=== PATIENT | female | born 2000 | race Caucasian/White ===

== ENCOUNTER 2024-03-05 16:30 | Emergency (ER) | payer OTHER, SELFPAY ==
[2024-03-05 16:33] VITALS: BP 132/73
--- NOTE | 2024-03-05 17:30 | ED.GENMED ---
History of Present Illness
General
Chief Complaint: Crisis Evaluation
Source: patient
Exam Limitations: none
Time Seen by Provider: 03/05/24 16:59
History of Present Illness
History of Present Illness:
23-year-old female presents with complaints of feeling overwhelmed and very anxious. Her father who accompanies her states that she has been almost manic lately. She has been wanting to buy everyone priest and a puppy. And more recently has been
more depressed. She spent some time at [facility] about a year ago and working diagnosis at that time was bipolar versus schizophrenia versus borderline personality disorder. Father found that she had not been taking
her medications for the past 3 months. He just restarted these several days ago however this has not helped. He cannot recall the name of the medication but he thinks it sounds like Lamictal. When asked if the patient had been thoughts of hurting
herself, she responded 'yeah I should.'
Phy Exam
Physical Exam
Physical Exam:
General: Well-developed female no acute respiratory distress
Psychiatric exam: Bizarre affect nonspecific thoughts of suicidality. Admits to feeling depressed and anxious.
Heart: Regular rate and rhythm no murmurs
Lungs: Clear no wheeze
ext: no cyanosis.
Course
Orders/Labs/Results
Orders:
Orders
03/05/24 16:46
1:1 Observation - Suicide/ Violent Behavior As Directed
Crisis Consult Urgent
Reason for Consult: SI, hallucinations
03/05/24 17:27
Alcohol Urgent
Complete Blood Count/With Diff Urgent
Comprehensive Metabolic Panel Urgent
Drug Screen, Urine [Urine Drug Abuse Screen] Urgent
Date Specimen was Collected: 03/05/24
Time Specimen was Collected: 17:26
Fentanyl, Urine Urgent
Abnormal Lab Results
03/05/24
17:27
RBC 4.09 L 10^6/uL
(4.20-5.40)
MCH 32.5 H pg
(27.0-31.0)
Lymphocytes % 19.6 L %
(20.5-51.1)
Carbon Dioxide 20 L mmol/L
(22-30)
Total Bilirubin 1.7 H mg/dl
(0.2-1.3)
Albumin 5.4 H g/dl
(3.5-5.0)
U Benzodiazepines Scrn Positive H
(Negative)
U Marijuana (THC) Screen Positive H
(Negative)
03/05/24 17:27
03/05/24 17:27
Vital Signs
Initial and Last Documented VS:
Initial Vital Signs
Temp Pulse Resp BP Pulse Ox
98.7 F 90 18 132/73 99
03/05/24 16:33 03/05/24 16:33 03/05/24 16:33 03/05/24 16:33 03/05/24 16:33
Last Documented Vital Signs
Temp Pulse Resp BP Pulse Ox
98.7 F 73 18 112/73 100
03/05/24 16:33 03/05/24 19:30 03/05/24 19:30 03/05/24 19:30 03/05/24 19:30
MDM/Problems Addressed
Differential Diagnosis Includes:
Patient presents for mental health evaluation. There is vague suicidality but history is somewhat unreliable given her current state. Will check labs. Crisis consult placed. Currently accompanied with father
*Critical Care Note
Total Time (30-74mins, 75-104mins- exclusive of procedures): Not Applicable
Update Note
Update Note:
Patient with medical workup that is unrevealing. She has been seen by crisis department. Patient is agreeable to inpatient placement. She is here voluntarily for this. She has not required any medications up until this point. She is medically
clear for psychiatric disposition
ED Attending Note
-
Portions of this chart may have been created with voice recognition software.� Occasional wrong word or��sound alike� substitutions may have occurred due to the inherent limitations of voice recognition software.
Discharge Plan
Departure
Patient Disposition: Psych Facility
Date of Disposition: 03/05/24
Time of Disposition: 20:07
Patient with high blood pressure during this ER visit?: No
Discharge Problem:
Anxiety
Interventions
Interventions:
*Risk Screen - Suicide Last Done: 03/05/24 16:40
*General Assessment Last Done: 03/05/24 16:40
*Neglect/Abuse Screening Last Done: 03/05/24 16:40
ED- Fall Risk Assessment Last Done: 03/05/24 18:03
ED-Psychological Assessment Last Done: 03/05/24 18:03
Discharge Date and Time
Print Language: ROMANIAN
[2024-03-05 17:38] LABS: % Basophils 0.4 % (0-2); % Immature Granulocytes 0.2 % (0-0.5); % Lymphocytes 19.6 % (20.5-51.1); % Monocytes 7.2 % (1.7-9.3); % Neutrophils 72.6 % (42.2-75.2); Absolute Lymphocytes 1.7 10^3/uL (1.2-3.4); Absolute Monocytes 0.6 10^3/uL (0.1-0.6); Absolute Neutrophils 6.5 10^3/uL (1.4-6.5); Hemoglobin 13.3 g/dL (12.0-16.0); Mean Corp Hgb Conc. 35.9 g/dL (33.0-37.0); Mean Corpuscular Hgb 32.5 pg (27.0-31.0); Mean Corpuscular Volume 90.5 fL (81.0-99.0); Mean Platelet Volume 8.7 fL (7.4-10.4); Nucleated Red Blood Cells % 0 %; Platelet Count 191 10^3/uL (130-400); Red Blood Cell Count 4.09 10^6/uL (4.20-5.40); Red Cell Dist. Width 11.9 % (11.5-14.5); White Blood Cell Count 8.9 10^3/uL (4.8-10.8)
[2024-03-05 17:52] LABS: Amphetamines Negative (Negative); Barbiturates Negative (Negative); Benzodiazepines Positive (Negative); Buprenorphine Negative (Negative); Cocaine Negative (Negative); Marijuana Positive (Negative); Methadone Negative (Negative); Methamphetamines Negative (Negative); Opiates Negative (Negative); Phencyclidine Negative (Negative); Tricyclic Antidepressants Negative (Negative)
[2024-03-05 17:57] LABS: ALT (SGPT) 13 U/L (0-35); AST (SGOT) 19 U/L (14-36); Albumin 5.4 g/dl (3.5-5.0); Alkaline Phosphatase 42 U/L (38-126); Blood Urea Nitrogen 15 mg/dl (7-17); Calcium 9.9 mg/dl (8.4-10.2); Carbon Dioxide 20 mmol/L (22-30); Chloride 102 mmol/L (98-107); Glucose 88 mg/dl (70-99); Sodium 140 mmol/L (135-145); Total Bilirubin 1.7 mg/dl (0.2-1.3); Total Protein 7.8 g/dl (6.3-8.2); eGFR > 60.00
[2024-03-05 17:58] LABS: Alcohol None Detected
--- NOTE | 2024-03-05 17:59 | EDRN ---
Pts father stepped out of the room to make a phonecall and get food, pt began to panic and ran down the hallway looking for an exit, redirected back to room #[id number], pt appears to be responding to hallucinations and not able to be reasoned with at this
time as she stares blankly at this RN, moved to C2 and report given to Cammie.
[2024-03-05 18:18] LABS: Fentanyl, Urine Negative (Negative)
[2024-03-05 19:30] VITALS: BP 112/73
--- NOTE | 2024-03-05 21:09 | EDRN ---
crisis contacted this RN in regards to patient's positive UDS for benzodiazepine's. pharmacy billing adjudicator, Sydni, looked up patient on PDMP as well as calling [address] [facility] in [place] to access patient's prescription records. neither the PDMP or [facility] had any
record of patient being prescribed benzodiazepines. pt father at bedside does not have patient's medications with them, however states there are only 2 that she is prescribed & taking. crisis notified of efforts to obtain prescription records.
--- NOTE | 2024-03-05 21:15 | EDRN ---
upon further discussion with patient and patient's father, pt reports taking fluoxetine 20mg daily as well as taking hydroxyzine recently for an acute anxiety attack
[2024-03-05 21:37] LABS: HCG, Serum Qualitative Screen Negative
== END 2024-03-06 00:54 ==
LOC: EMR 16:30
PROVIDERS: Physician Assistant; EMERGENCY PHYSICIAN Student in an Organized Health Care Education/Training Program; FAMILY PHYSICIAN Family Medicine
DX: F41.9 Anxiety disorder, unspecified (principal); F30.9 Manic episode, unspecified
CPT/HCPCS: 99283; 80053; 80306; 80307; 82077; 84703; 85025